=== PATIENT | female | born 1945 | race Caucasian/White ===

== ENCOUNTER → 2016-09-22 | Outpatient (CLI) | payer MEDICARE, OTHER ==
[~2016-09-22] MED LIST: ALPR0.25 PO; APIX5TAB PO; B COTAB7 PO; CART240C4 PO; CHOL1CAP6 PO; CLON.1 PO; ESTR0.752 PO; HYDR-2768 PO; IRON325T2 PO; LIPI20TA PO; LISI-363 PO; LUTE20CA PO; POTA10IN2 PO; SYNT125T PO; [UNRECOGNIZED DRUG - OTHER] PO
== END ==
LOC: CPRE 09:46
PROVIDERS: ATTEND Orthopaedic Surgery
DX: Z01.818 Encounter for other preprocedural examination (principal); M16.12 Unilateral primary osteoarthritis, left hip